=== PATIENT | male | born 1975 | race Caucasian/White ===

== ENCOUNTER 2017-01-22 06:17 | Emergency (ER) | payer OTHER ==
[2017-01-22 06:26] VITALS: BP 166/106; BMI 35.6
[2017-01-22] MEDS ORDERED: HYDROGEN PEROXIDE 3% ONE (06:41)
--- NOTE | 2017-01-22 06:53 | DR.GENAD ---
HPI - PCP Primary Care Physician: lloyd - Complaint/Symptoms Chief Complaint:: pt states " my rt ear has been hurting since last sunday i seen pat she put me on amoxil and a ear drop. i can't hear out of my rt ear i think the drops stopped my ear up" - Source History Provided: Patient - Mode of Arrival Mode of Arrival: Ambulatory - Timing Onset of Chief Complaint: 01/17/17 PMH - PMH Past Medical History: Yes Past Medical History: Headaches, Hypertension, Hypothyroidism Past Surgical History: Yes Surgical History: Ortho Surgery Past Surgical History Comment: hernia - Family History History of Family Medical Conditions: Yes Family Medical History: Diabetes Mellitus, Cancer, [place], Coronary Artery Disease, Hypertension - Social History Type of Tobacco Use: Cigarettes Does any household member use tobacco: No Alcohol Use: Occasionally Do you use any recreational Drugs:: No Lives With: Family Lives Where: Home - infectious screening In the last 2 months have you had wt loss of >10#?: NO Have you had fever, night sweats or hemotysis?: No Have you traveled outside the country in the last 6 months?: No Isolation: Standard ROS - Review of Systems Eyes: No Symptoms Reported ENTM: No Symptoms Reported, Ear Discharge (cerumen impaction right) Respiratoy: No Symptoms Reported Cardiovascular: No Symptoms Reported Gastrointestinal/Abdominal: No Symptoms Reported Genitourinary: No Symptoms Reported Neurological: No Symptoms Reported Musculoskeletal: No Symptoms Reported Integumentary: No Symptoms Reported Hematologic/Lymphatic: No Symptoms Reported Endocrine: No Symptoms Reported Psychiatric: No Symptoms Reported All Other Systems: Reviewed and Negative PE - Vital Signs Vitals: Temperature 97.9 F Pulse Rate 78 Respiratory Rate 18 Blood Pressure [Left Arm] 158/80 Blood Pressure 166/106 O2 Sat by Pulse Oximetry 98 - General Limitations: No Limitations General Appearance: Alert, In No Apparent Distress - Head Head Exam: Normal Inspection, Atraumatic - Eyes Eye exam: Normal Appearance, PERRL, EOMI - ENT ENT Exam: Normal Exam External Ear Exam: Normal External Inspection TM/Canal Exam: Bilateral Normal Nose Exam: Normal Nose Exam Mouth Exam: Normal Inspection Throat Exam: Normal Inspection - Neck Neck Exam: Normal Inspection, Full ROM - Chest Chest Inspection: Normal Inspection - Respiratory Respiratory Exam: Normal Lung Sounds Bilat Respiratory Exam: Bilateral Clear to Auscultation - Cardiovascular Cardiovascular Exam: Regular Rate, Normal Rhythm - Abdominal Exam Abdominal Exam: Normal Inspection, Normal Bowel Sounds Abdominal Tenderness: negative: RUQ, RLQ, LUQ, LLQ, Epigastrium, Suprapubic, Diffuse, Mild, Moderate, Severe, Other - Extremities Extremities Exam: Normal Inspection - Back Back Exam: Normal Inspection, Full ROM - Neurologic Neurological Exam: Alert, Oriented X3, CN II-XII Intact - Psychiatric Psychiatric Exam: Normal Affect - Skin Skin Exam: Warm, Dry, Intact Course - Reevaluation 1st: Improved - Diagnosis Discharge Problem: Right ear impacted cerumen - Discharge Plan Condition: Stable - Follow ups/Referrals Follow ups/Referrals: LUCÍA WILLIAMSON [Primary Care Provider] - 3 days - Instructions
== END 2017-01-22 07:19 | disposition home or self-care (01) ==
LOC: ER 06:17
DX: H61.21 Impacted cerumen, right ear (principal)
CPT/HCPCS: 99282

== ENCOUNTER 2017-06-05 12:17 | Emergency (ER) | payer OTHER ==
[2017-06-05 12:22] VITALS: BMI 34.9
[2017-06-05] MEDS ORDERED: CATAPRES TAB 0.2 MG PO ONE (13:44)
[2017-06-05] MEDS ORDERED: CATAPRES TAB 0.2 MG ONE (13:44)
[2017-06-05] MEDS ORDERED: NORFLEX INJ IM ONE (13:54)
[2017-06-05] MEDS ORDERED: TORADOL 60 MG VIAL IM ONE (13:54)
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
[2017-06-05] MEDS ORDERED: TORADOL 60 MG VIAL ONE (14:17)
[2017-06-05] MEDS ORDERED: NORFLEX INJ ONE (14:17)
[2017-06-05 15:16] VITALS: BP 153/96
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
== END 2017-06-05 15:58 | disposition home or self-care (01) ==
LOC: ER 12:25
DX: S13.9XXA Sprain of joints and ligaments of unspecified parts of neck, initial encounter (principal); I10 Essential (primary) hypertension; J01.80 Other acute sinusitis; M47.892 Other spondylosis, cervical region; V86.59XA Driver of other special all-terrain or other off-road motor vehicle injured in nontraffic accident, initial encounter; Y92.9 Unspecified place or not applicable
CPT/HCPCS: 72125; 96372; 99282; 99283; J1885; J2360